=== PATIENT | male | born 1935 | race Caucasian/White ===

== ENCOUNTER 2016-07-10 14:36 | Inpatient (IN) | payer OTHER ==
--- NOTE | ~2016-07-10 | HP ---
History And Physical [address] [address] NAME: JASON KINNEY : 39 STATUS : ADM IN [facility]#: [id number] AGE: 81 ADM/REG DATE : 07/10/16 MR#: [id number] REPORT SERV DATE: 07/10/16 DICTATED BY: SHAGUFTA BOYCE JR. DATE: 07/10/16 REPORT STATUS : Draft TRANSCRIBED BY: SHARAN DATE: 07/10/16 DATE OF ADMISSION: 07/10/2016 CHIEF COMPLAINT: Chest pain, anterior OK. HISTORY OF PRESENT ILLNESS: Jason Kinney is a 81-year-old white male, who has chronic atrial fibrillation, and presents to [facility] ER with chest pain, diaphoresis, and shortness of breath. EKG revealed anteroseptal and anterolateral ST-elevation consistent with STEMI. The patient was treated with IV heparin and nitroglycerin en route, became chest pain free. He is currently chest pain free on arrival. He states that today was his first episode of precordial chest pain. He was in his usual state of health prior to this. PAST MEDICAL HISTORY: Includes chronic atrial fibrillation. He has mild dementia. He denies hypertension, mixed hyperlipidemia, diabetes, or renal insufficiency. ALLERGIES: IV DYE. CURRENT MEDICATIONS: Include Jantoven, Namenda, turmeric, and zolpidem. SOCIAL HISTORY: He does not drink smoke or use recreational drugs. FAMILY HISTORY: Negative for premature vascular events. REVIEW OF SYSTEMS: He denies bleeding diathesis, fever, chills, sudden weight gain or weight loss. Remainder as in the HPI or negative. PHYSICAL EXAMINATION: VITAL SIGNS: Blood pressure is 130/70, heart rate 64, and respirations 16. GENERAL: Well-developed, well-nourished, in no acute distress. HEENT: Anicteric, no scleral injection, no oral lesions. NECK: No JVD, supple, no bruits. LUNGS: Clear to auscultation. No hyperexpansion. CARDIOVASCULAR: Irregularly irregular rhythm. ABDOMEN: Soft, nontender. Normoactive bowel sounds, no hepatosplenomegaly. EXTREMITIES: No clubbing, cyanosis or edema. SKIN: No visible rashes. NEURO/PSY: Normal affect, alert and oriented x3. LABORATORY DATA: White count 7.6, hematocrit 47, and platelets are 196. Potassium 3.5, creatinine is 1.15. Glucose is 113. INR is 1.78. Troponin is 0.04. MEDICAL DECISION MAKIN. Threatened anterolateral OK. The patient is asymptomatic currently, but presented with classical symptoms. An EKG consistent with injury. The risks and benefits of the left heart catheterization and percutaneous intervention were explained, verbalized, and History And Physical [address] [address] NAME: JASON KINNEY : 39 STATUS : ADM IN [facility]#: [id number] AGE: 81 ADM/REG DATE : 07/10/16 MR#: [id number] REPORT SERV DATE: 07/10/16 DICTATED BY: SHAGUFTA BOYCE JR. DATE: 07/10/16 REPORT STATUS : Draft TRANSCRIBED BY: SHARAN DATE: 07/10/16 accepted. 2. Atrial fibrillation. We will adjust anticoagulant therapy as needed during the hospital stay. 3. Mixed hyperlipidemia. We will initiate intensive statin therapy pending angiography results. YANCY/SHARAN Shagufta Boyce Jr., M.D. / [id number] CC: Gabino Oh Jr., M.D. Joseph Powers, M.D.
--- NOTE | ~2016-07-10 | DS ---
Discharge Summary [facility] [address] [place]. [address] NAME: FANTA KINNEY : 39 STATUS : DIS IN PAT#: [id number] AGE: 81 ADM/REG DATE : 07/10/16 MR#: [id number] REPORT SERV DATE: 07/22/16 DICTATED BY: ANGELINA PEDRO DATE: 07/21/16 REPORT STATUS : Draft TRANSCRIBED BY: SHARAN DATE: 07/21/16 Data Collection from hospitalization DISCHARGE DIAGNOSES: 1. Chest pain/anterior myocardial infarction, status post drug-eluting stent x2. 2. Congestive heart failure - ejection fraction 30%. 3. Atrial fibrillation. 4. Hyperlipidemia. 5. Dementia. CONSULTATIONS: None. PROCEDURES PERFORMED: Cardiac catheterization and percutaneous coronary intervention on 07/10/2016. MEDICATIONS: Aspirin 81 mg daily, Lipitor 40 mg at bedtime, Coreg 3.125 mg twice a day, Plavix 75 mg daily, Prinivil 2.5 mg daily, Namenda 10 mg twice a day, and Coumadin as instructed. CONDITION AT DISCHARGE: Stable. DISPOSITION: The patient was discharged home to be followed by home health care on a cardiac diet with activities as instructed. He would follow up with Dr. Wilbert Mejia on 07/16/2016 and 08/26/2016. HOSPITAL COURSE: This is a 81-year-old man who has chronic atrial fibrillation who presented to [facility] Emergency Room with chest pain, diaphoresis, and shortness of breath. EKG revealed anteroseptal and anterolateral ST-elevation consistent with STEMI. He was treated with IV heparin and nitroglycerin en route and became chest pain-free. He was currently chest pain-free on arrival. He said that on the day of this admission, it was his first episode of precordial chest pain. He had been in his usual state of health prior to this. He was felt to have threatened anterolateral myocardial infarction. He was admitted to the hospital for further evaluation and treatment. Upon admission, INR level was 1.78. Troponin was 0.04. Creatinine was 1.15. The patient was asymptomatic currently, but did present with classical symptoms. EKG was consistent with injury. It was felt that the patient should undergo cardiac catheterization and possible percutaneous coronary intervention. The patient has atrial fibrillation and we would adjust anticoagulant therapy as needed during the hospital stay. He has mixed hyperlipidemia and we would initiate intensive statin therapy pending angiography results. 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 Oh. He tolerated this well, and there were no complications. The following day, he had no chest pain or dyspnea. Creatinine was 1.14. CBC was normal. His lungs were clear. His groin site looked okay. He was transferred to the floor. On 07/12/2016, he had no chest pain or dyspnea. He was felt to have moderate dementia and had some sundowning. His atrial fibrillation was controlled. A LifeVest was going to be placed. The patient was on Coreg. MICHAEL inhibitor was added. Discharge planning was performed. On 07/13/2016, he said he felt well. His said he slept well the Discharge Summary [address] [address] NAME: FANTA KINNEY : 39 STATUS : DIS IN PAT#: [id number] AGE: 81 ADM/REG DATE : 07/10/16 MR#: [id number] REPORT SERV DATE: 07/22/16 DICTATED BY: ANGELINA PEDRO DATE: 07/21/16 REPORT STATUS : Draft TRANSCRIBED BY: MODWagner DATE: 07/21/16 previous evening. He had no new complaints. He had no chest pain, shortness of breath, or palpitations. His lungs were clear. He was in atrial fibrillation with a rate of 81. INR level was therapeutic at 2.5. Warfarin was continued. Discharge instructions were given. Due to his improved and stable condition, he was discharged home to be followed by home health care with the above-stated instructions. Information collected by: Kate Lu I submit the above information as my discharge summary. TG/SHARAN Mallorie Pedro M.D. / [id number] CC: Gabino Oh Jr., M.D.
[2016-07-10 17:33] LABS: CK-MB 7.1 NG/ML
[2016-07-10 17:35] LABS: TROPONIN I 3.5 NG/ML (<0.05)
[2016-07-11 01:25] LABS: BASOPHILS 0.1 %; BASOPHILS ABSOLUTE 0.01 10/3/uL (0.0-0.16); EOSINOPHILS 1.5 %; EOSINOPHILS ABSOLUTE 0.12 10/3/uL (0.0-0.53); HEMATOCRIT 43.9 % (40.0-51.0); HEMOGLOBIN 14.8 g/dL (13.6-17.8); IMMATURE GRANULOCYTES 0.1 %; IMMATURE GRANULOCYTES ABSOLUTE 0.01 10/3/uL (0.0-0.11); LYMPHOCYTES 26.5 %; LYMPHOCYTES ABSOLUTE 2.06 10/3/uL (0.67-4.30); MEAN CORPUS HGB CONC 33.7 g/dL (32.0-36.0); MEAN CORPUSCULAR HEMOGLOB 32.5 pg (26.0-34.0); MEAN CORPUSCULAR VOLUME 96.5 fL (80-100); MONOCYTES 6.2 %; MONOCYTES ABSOLUTE 0.48 10/3/uL (0.21-1.20); NEUTROPHILS 65.6 %; PLATELET COUNT 163 10/3/uL (150-400); RBC DISTRIBUTION WIDTH 13.4 % (12.0-16.0); RED CELL COUNT 4.55 10/6/uL (4.7-6.1); WHITE BLOOD CELLS 7.8 10/3/uL (4.5-10.5)
[2016-07-11 01:27] LABS: MANUAL DIFF NO %
[2016-07-11 01:34] LABS: PROTIME (NOT ORD) 22.8 SEC (12.0-14.5)
[2016-07-11 01:42] LABS: BUN (BLOOD UREA NITROGEN) 13 MG/DL (6-23); CALCIUM, SERUM 8.7 MG/DL (8.5-10.4); CHLORIDE, SERUM 106 MMOL/L (96-112); CHOL/HDL RATIO(NOT ORDER) 4.6 (0-5); CHOLESTEROL 180 MG/DL (< 200); CK-MB 18.8 NG/ML; CKMB INDEX (NOT ORD) 7.1; CO2 (CARBON DIOXIDE) 28 MMOL/L (24-34); CPK 266 U/L (0-200); CREATININE 1.14 MG/DL (0.70-1.30); GFR AFRICAN AMERICAN 71 ML/MIN (>=60); GFR NON AFRICAN AMERICAN 61 ML/MIN (>=60); GLUCOSE, SERUM 100 MG/DL (60-99); HDL CHOLESTEROL 39 MG/DL (> 39); LDL CHOLESTEROL 121 MG/DL (< 130); NON-HDL CHOLESTEROL 141 MG/DL (< 160); POTASSIUM, SERUM 3.6 MMOL/L (3.5-5.3); SODIUM, SERUM 140 MMOL/L (135-148); TRIGLYCERIDE 103 MG/DL (< 150)
[2016-07-11 01:52] LABS: RBC MORPHOLOGY NORM (NORMAL)
[2016-07-11 01:54] LABS: PLATELET ESTIMATE ADQ (ADEQUATE)
[2016-07-11 10:01] LABS: BASOPHILS 0.1 %; BASOPHILS ABSOLUTE 0.01 10/3/uL (0.0-0.16); EOSINOPHILS 2.3 %; EOSINOPHILS ABSOLUTE 0.16 10/3/uL (0.0-0.53); HEMATOCRIT 45.7 % (40.0-51.0); HEMOGLOBIN 15.2 g/dL (13.6-17.8); IMMATURE GRANULOCYTES 0.1 %; IMMATURE GRANULOCYTES ABSOLUTE 0.01 10/3/uL (0.0-0.11); LYMPHOCYTES 21.4 %; LYMPHOCYTES ABSOLUTE 1.51 10/3/uL (0.67-4.30); MEAN CORPUS HGB CONC 33.3 g/dL (32.0-36.0); MEAN CORPUSCULAR HEMOGLOB 32.7 pg (26.0-34.0); MEAN CORPUSCULAR VOLUME 98.3 fL (80-100); MEAN PLATELET VOLUME 11.3 fL (9.2-13.0); MONOCYTES 8.1 %; MONOCYTES ABSOLUTE 0.57 10/3/uL (0.21-1.20); NEUTROPHILS ABSOLUTE 4.79 10/3/uL (2.02-8.40); PLATELET COUNT 167 10/3/uL (150-400); RBC DISTRIBUTION WIDTH 13.5 % (12.0-16.0); RED CELL COUNT 4.65 10/6/uL (4.7-6.1); WHITE BLOOD CELLS 7.1 10/3/uL (4.5-10.5)
[2016-07-11 10:02] LABS: MANUAL DIFF NO %
[2016-07-11 10:16] LABS: CK-MB 18.1 NG/ML; CKMB INDEX (NOT ORD) 7.4; TROPONIN I 10.5 NG/ML (<0.05)
[2016-07-11 18:07] LABS: BASOPHILS 0.1 %; BASOPHILS ABSOLUTE 0.01 10/3/uL (0.0-0.16); EOSINOPHILS 1.8 %; EOSINOPHILS ABSOLUTE 0.14 10/3/uL (0.0-0.53); HEMATOCRIT 46.7 % (40.0-51.0); HEMOGLOBIN 15.6 g/dL (13.6-17.8); IMMATURE GRANULOCYTES 0.3 %; IMMATURE GRANULOCYTES ABSOLUTE 0.02 10/3/uL (0.0-0.11); LYMPHOCYTES 23.4 %; LYMPHOCYTES ABSOLUTE 1.79 10/3/uL (0.67-4.30); MEAN CORPUS HGB CONC 33.4 g/dL (32.0-36.0); MEAN CORPUSCULAR HEMOGLOB 32.8 pg (26.0-34.0); MEAN CORPUSCULAR VOLUME 98.1 fL (80-100); MEAN PLATELET VOLUME 11.6 fL (9.2-13.0); MONOCYTES 7.5 %; MONOCYTES ABSOLUTE 0.57 10/3/uL (0.21-1.20); NEUTROPHILS 66.9 %; NEUTROPHILS ABSOLUTE 5.11 10/3/uL (2.02-8.40); PLATELET COUNT 175 10/3/uL (150-400); RBC DISTRIBUTION WIDTH 13.5 % (12.0-16.0); RED CELL COUNT 4.76 10/6/uL (4.7-6.1); WHITE BLOOD CELLS 7.6 10/3/uL (4.5-10.5)
[2016-07-11 18:09] LABS: MANUAL DIFF NO %
[2016-07-12 05:30] LABS: INTERNATIONAL NORMAL RATI 2.1 UNITS (-); PROTIME (NOT ORD) 23.3 SEC (12.0-14.5)
[2016-07-12 05:38] LABS: CREATININE 1.04 MG/DL (0.70-1.30)
[2016-07-13 05:20] LABS: INTERNATIONAL NORMAL RATI 2.5 UNITS (-)
[2016-07-13 05:21] LABS: PROTIME (NOT ORD) 26.8 SEC (12.0-14.5)
[2016-07-13] MEDS ORDERED: ASAB PO (12:22)
[2016-07-13] MEDS ORDERED: LIPITOR40 PO (12:25)
[2016-07-13] MEDS ORDERED: COREG3 PO (12:26)
[2016-07-13] MEDS ORDERED: PLAVIX PO (12:26)
[2016-07-13] MEDS ORDERED: PRIN2.5 PO (12:27)
[2016-07-13] MEDS ORDERED: NAMENDA10 MG PO (12:27)
[2016-07-13] MEDS ORDERED: C25 PO (12:28)
[2016-07-13] MEDS ORDERED: COUMADIN4 MG PO (12:28)
[2016-07-13] MEDS ORDERED: NTG150 SL (12:34)
== END 2016-07-13 20:03 | disposition home health service (06) | DRG 246 ==
LOC: SSU2 14:36 → CCU 16:43 → 7NO 07-11 19:45
PROVIDERS: Internal Medicine Cardiovascular Disease
PROC: 4A023N7 Measurement of Cardiac Sampling and Pressure, Left Heart, Percutaneous Approach (ICD-10-PCS; principal; 2016-07-10)
PROC: 027035Z Dilation of Coronary Artery, One Artery with Two Drug-eluting Intraluminal Devices, Percutaneous Approach (ICD-10-PCS; 2016-07-10)
PROC: B2111ZZ Fluoroscopy of Multiple Coronary Arteries using Low Osmolar Contrast (ICD-10-PCS; 2016-07-10)
PROC: B2151ZZ Fluoroscopy of Left Heart using Low Osmolar Contrast (ICD-10-PCS; 2016-07-10)
DX: I21.09 ST elevation (STEMI) myocardial infarction involving other coronary artery of anterior wall (principal); I50.23 Acute on chronic systolic (congestive) heart failure; F03.90 Unspecified dementia, unspecified severity, without behavioral disturbance, psychotic disturbance, mood disturbance, and anxiety; I48.2 Chronic atrial fibrillation; E78.5 Hyperlipidemia, unspecified; E78.2 Mixed hyperlipidemia
CPT/HCPCS: 71010; 80048; 80061; 82550; 82553; 82565; 84484; 85025; 85610; 93005; 93458; 99152; 99153; A9270-GY; C1725; C1769; C1874; C1887; C1894; C8929; C9606; J0583; J2250; J2405; J3010; Q9957; Q9967